=== PATIENT | female | born 1965 | race Caucasian/White ===

== ENCOUNTER → 2016-10-13 | Outpatient (CLI) | payer OTHER ==
[2016-10-13 14:53] VITALS: BP 155/97
== END ==
LOC: MHUC 14:15
PROVIDERS: ATTEND Physician Assistant
DX: J40 Bronchitis, not specified as acute or chronic (principal)
CPT/HCPCS: 99213

== ENCOUNTER → 2016-12-18 | Outpatient (CLI) | payer OTHER ==
[~2016-12-18] MED LIST: AZIT250T81 PO; LIDOVISC MT; METH4TAB27 PO
[2016-12-18 17:16] VITALS: BP 177/110
--- NOTE | 2016-12-18 17:16 | Urgent Care T Sheet Gen (E) ---
Intake General Temperature (Fahrenheit): 99.8 Pulse: 94 Blood Pressure Systolic: 177 Blood Pressure Diastolic: 110 (been taking Tylenol Cold and Sinus) Respirations: 20 SPO2: 97 Description of Symptoms Patient presents with illness since Thursday. Notes fever/chills, malaise. Sore throat worsened today. Patient has been taking Tylenol Cold thinking her symptoms were cold related however she hasn't gotten any relief. History of Present Illness Home Meds Active Scripts Methylprednisolone (Medrol Dosepack)21 Tab/Pkt Tablet6 Tab PO DAILY Inflammation #1 PKT Ref 0 6 tabs po on day 1 then decrease by 1 tab daily until packet is gone Prov:SUSANA RAVI 10/13/16 Azithromycin (Zithromax Z-Lizandro)6 Tab/Pkt [id number] Mg PO SEE INSTRUCTIONS #6 TAB Ref 0 Day One: Take 2 tablets by mouth Days Two-Five: Take 1 tablet by mouth Prov:SUSANA RAVI 10/13/16 Respiratory Constitutional Symptoms: Chills Fever Malaise EENTM: Throat pain Respiratory: No symptoms reported Cardiovascular: No symptoms reported Gastrointestinal/Abdominal: No symptoms reported All Other Systems Reviewed Remaining Systems: All other systems reviewed with negative findings Physical Exam Physical Exam General Appearance: WD/WN No apparent distress Eyes, Ears, Nose, Throat Ex: TMs normal Pharyngeal erythema Other (nose is clear) Neck Exam: Supple Lymphadenopathy (anterior cervical) Respiratory Exam: Lungs clear Normal breath sounds Cardiovascular Exam: Regular rate, rhythm Departure Urgent Care Impression Impression: Primary Impression: Pharyngitis Qualified Code: J02.9 - Acute pharyngitis, unspecified Departure Disposition: HOME OR SELF-CARE Condition: Stable Referrals: HILLARY JACOME MD (PCP) Additional Instructions: Explained to the patient that we are out of rapid strep tests and are treating based on clinical findings. With her fever and sore throat, I am treating her for strep. I have started her on a zpak and visc lidocaine as needed for pain. 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 All questions were answered. Scripts Lidocaine HCl (Xylocaine 2% Viscous)100 Ml Soln5 Ml MT Q2H W/A PRN SORE THROAT # 1 BTL gargle and spit 5ml po q 2 hrs prn sore throat Prov:SUSANA RAVI 12/18/16 Azithromycin (Zithromax Z-Lizandro)6 Tab/Pkt [id number] Mg PO SEE INSTRUCTIONS #6 TAB Ref 0 Day One: Take 2 tablets by mouth Days Two-Five: Take 1 tablet by mouth Prov:SUSANA RAVI 12/18/16 End of report . SUSANA RAVI Dec 18, 2016 17:16
== END ==
LOC: MHUC 16:55
PROVIDERS: ATTEND Physician Assistant
DX: J02.9 Acute pharyngitis, unspecified (principal)
CPT/HCPCS: 99213

== ENCOUNTER → 2017-01-15 | Outpatient (CLI) | payer OTHER ==
[2017-01-15 13:21] VITALS: BP 138/82
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
== END ==
LOC: MHUC 11:12
PROVIDERS: ATTEND Physician Assistant
DX: T23.151A Burn of first degree of right palm, initial encounter (principal); X15.3XXA Contact with hot saucepan or skillet, initial encounter
CPT/HCPCS: 99213